=== PATIENT | female | born 1940 | race Caucasian/White ===

== ENCOUNTER 2016-05-18 16:21 | Outpatient (CLI) | payer MEDICARE ==
--- NOTE | 2016-05-19 09:34 | RAD ---
LEFT SHOULDER THREE VIEWS 05/18/16 No acute fracture or dislocation was seen. The AC joint is not widened. The adjacent ribs appear int act. There is some irregularity of the greater tubercle that could be from remote trauma, but it aquino s not appear recent. IMPRESSION: No acute bony finding. POS: HOME
--- NOTE | 2016-05-19 09:34 | RAD ---
LEFT ELBOW FOUR VIEWS 05/18/16 No acute fracture was seen. There is no joint effusion or significant arthritic change. There is timothy e very minor irregularity along the lateral humeral epicondyle which could be connected to remote tr auma. IMPRESSION: No acute finding. POS: HOME
== END 2016-05-18 16:22 | disposition home or self-care (01) ==
LOC: BURRAD 16:21
PROVIDERS: ATTEND Physician Assistant
DX: M25.512 Pain in left shoulder (principal)

== ENCOUNTER 2017-11-14 13:57 | Outpatient (CLI) | payer MEDICARE ==
--- NOTE | 2017-11-14 19:08 | RAD ---
LEFT ANKLE THREE VIEWS: 11/14/17 No fracture was seen. Tibiotalar joint is perhaps a little narrow but the articular surfaces are smoo th. A large calcaneal spur was noted. IMPRESSION: No acute bony findings. POS: HOME
== END 2017-11-14 13:58 | disposition home or self-care (01) ==
LOC: BURRAD 13:57
PROVIDERS: ATTEND Physician Assistant
DX: M25.572 Pain in left ankle and joints of left foot (principal)

== ENCOUNTER 2018-05-18 14:31 | Outpatient (CLI) | payer MEDICARE ==
--- NOTE | 2018-05-18 17:25 | RAD ---
RIGHT SHOULDER THREE VIEWS 05/18/18 No fracture, dislocation, or AC joint widening was seen. There may be some faint calcifications in so me of the tendons as they attach to the greater tubercle of the humerus. The scapula and adjacent rib s appear intact. IMPRESSION: No acute bony findings. POS: HOME
--- NOTE | 2018-05-18 17:30 | RAD ---
RIGHT ELBOW FOUR VIEWS: 05/18/18 No fracture or joint effusion was seen. Some bony spurring was seen on the coronoid process of the ul na. IMPRESSION: No acute bony findings. POS: HOME
== END 2018-05-18 14:32 | disposition home or self-care (01) ==
LOC: BURRAD 14:31
PROVIDERS: ATTEND Physician Assistant
DX: M25.521 Pain in right elbow (principal); M25.511 Pain in right shoulder; W19.XXXA Unspecified fall, initial encounter

== ENCOUNTER 2018-10-23 13:48 | Outpatient (CLI) | payer MEDICARE ==
--- NOTE | 2018-10-23 18:06 | RAD ---
RIGHT HAND THREE VIEWS: 10/23/18 No acute fracture was appreciated. Some mild arthritic changes are seen in the IP joints of the finge rs, particularly the DIP joint of the index finger. The carpal relationships seem normal. IMPRESSION: No acute finding. POS: HOME
== END 2018-10-23 13:49 | disposition home or self-care (01) ==
LOC: BURRAD 13:48
PROVIDERS: ATTEND Physician Assistant
DX: M79.641 Pain in right hand (principal); W19.XXXA Unspecified fall, initial encounter

== ENCOUNTER 2019-10-31 10:12 | Outpatient (CLI) | payer MEDICARE | END 2019-10-31 10:13 | disposition home or self-care (01) | LOC: BUREKG 10:12 | PROVIDERS: ATTEND Physician Assistant | DX: R00.1 Bradycardia, unspecified (principal) | CPT/HCPCS: 93005; 93010 ==